=== PATIENT | female | born 1995 | race American Indian/Alaskan Native ===

== ENCOUNTER 2020-10-25 11:35 | Emergency (ER) | payer MEDICAID ==
--- NOTE | 2020-10-25 12:11 | Emergency Department Report ---
HPI - General Chief Complaint: Syncope Time Seen by Provider: 10/25/20 11:49 - HPI HPI: This is a 25-year-old -[place] female presents to the emergency department via EMS from the office of her general surgeon, Dr. Catalan, with a complaint of a syncopal episode with concern for blood loss. Patient has a history of hidradenitis suppurativa to the back of her neck that initially was incised on October 12. She went back on October 16 and everything looked fine at that time and she was told to monitor for infection and repack the wound. Over the p ast few days the patient has had some episodes of severe bleeding from the wound. Sometimes it will bleed for a few hours, despite packing, but then will stop on its own. She went to an emergency department at [place] 1 time for the bleeding but the bleeding had ceased by the time she arrived there and she was told that "this can happen sometimes." This morning the patient woke up and once again there had been a lot of bleeding from the wound that had soaked her shirt. She went in to see Dr. Catalan this morning and was told that there may have been a small artery that was bleeding. Dr. Catalan put in some stitches to close the arterial bleeding, but when the patient sat up she passed out. She was then told to come to the emergency department as there was concern for too much blood loss. ED Past Medical Hx - Social History Smoking Status: Never Smoker - Medications Home Medications: Home Medications Medication Instructions Recorded Confirmed Last Taken Type Ferrous Sulfate [Feosol] 325 mg PO BID #30 tablet 10/25/20 Unknown Rx ED Review of Systems ROS: Stated complaint: BLEEDING FROM SUGERY SITE Other details as noted in HPI Comment: All other systems reviewed and negative Constitutional: denies: chills, fever Eyes: denies: eye pain, vision change ENT: denies: ear pain, throat pain Respiratory: denies: cough, shortness of breath Cardiovascular: syncope. denies: chest pain Gastrointestinal: denies: abdominal pain, vomiting Genitourinary: denies: dysuria, discharge Musculoskeletal: denies: back pain, arthralgia Neurological: denies: headache, weakness Hematological/Lymphatic: easy bleeding Physical Exam - Physical Exam Vital Signs: Vital Signs 10/25/20 11:53 Temperature 98 F Pulse Rate 75 Respiratory 16 Rate Blood Pressure 115/44 O2 Sat by Pulse 100 Oximetry Physical Exam: GENERAL: The patient is well-developed well-nourished. HENT: Normocephalic. Atraumatic. Patient has moist mucous membranes. EYES: Extraocular motions are intact. No nystagmus. NECK: Supple. Trachea is midline. CHEST/LUNGS: Clear to auscultation. There is no respiratory distress noted. HEART/CARDIOVASCULAR: Regular. There is no tachycardia. There is no murmur. ABDOMEN: Abdomen is soft, nontender. Patient has normal bowel sounds. Morbidly obese habitus. SKIN: Skin is warm and dry. There is a moderate incisional wound seen to the inferior posterior neck, along the length of her neck, but no current bleeding. No surrounding erythema or chronic purulent discharge. NEURO: The patient is awake, alert, and oriented. The patient is cooperative. The patient has no focal neurologic deficits. Normal speech. MUSCULOSKELETAL: There is no tenderness or deformity. There is no limitation range of motion. ED Course Vital Signs 10/25/20 11:53 Temperature 98 F Pulse Rate 75 Respiratory 16 Rate Blood Pressure 115/44 O2 Sat by Pulse 100 Oximetry - Consultations Consultation #1: 10/25/20 14:40 I spoke to the patient's surgeon, Dr. Catalan. He wanted to make sure that the patient received some IV fluid, which she did in route receiving 2 L of normal saline. Otherwise, if she does not require transfusion and is feeling improved then there is nothing else that he needs during this patient's ED course. They will call the patient for a follow-up appointment. ED Medical Decision Making - Lab Data Result diagrams: 10/25/20 12:36 10/25/20 12:36 Lab Results 10/25/20 10/25/20 10/25/20 Range/Units 12:36 12:36 12:36 WBC 10.9 (4.5-11.0) K/mm3 RBC 3.41 L (3.65-5.03) M/mm3 Hgb 9.4 L (10.1-14.3) gm/dl Hct 26.9 L (30.3-42.9) % MCV 79 (79-97) fl MCH 28 (28-32) pg MCHC 35 H (30-34) % RDW 15.2 (13.2-15.2) % Plt Count 234 (140-440) K/mm3 Lymph % (Auto) 16.9 (13.4-35.0) % [place] % (Auto) 5.2 (0.0-7.3) % Eos % (Auto) 2.5 (0.0-4.3) % Baso % (Auto) 0.7 (0.0-1.8) % Lymph # (Auto) 1.9 (1.2-5.4) K/mm3 [place] # (Auto) 0.6 (0.0-0.8) K/mm3 Eos # (Auto) 0.3 (0.0-0.4) K/mm3 Baso # (Auto) 0.1 (0.0-0.1) K/mm3 Seg Neutrophils % 74.7 H (40.0-70.0) % Seg Neutrophils # 8.2 H (1.8-7.7) K/mm3 Sodium 138 (137-145) mmol/L Potassium 4.3 (3.6-5.0) mmol/L Chloride 103.9 (98-107) mmol/L Carbon Dioxide 25 (22-30) mmol/L Anion Gap 13 mmol/L BUN 8 (7-17) mg/dL Creatinine 0.7 (0.6-1.2) mg/dL Estimated GFR > 60 ml/min BUN/Creatinine Ratio 11 % Glucose 105 H (65-100) mg/dL Calcium 8.0 L (8.4-10.2) mg/dL TSH (0.270-4.200) mlU/mL HCG, Qual Negative (Negative) 10/25/20 Range/Units 12:36 WBC (4.5-11.0) K/mm3 RBC (3.65-5.03) M/mm3 Hgb (10.1-14.3) gm/dl Hct (30.3-42.9) % MCV (79-97) fl MCH (28-32) pg MCHC (30-34) % RDW (13.2-15.2) % Plt Count (140-440) K/mm3 Lymph % (Auto) (13.4-35.0) % [place] % (Auto) (0.0-7.3) % Eos % (Auto) (0.0-4.3) % Baso % (Auto) (0.0-1.8) % Lymph # (Auto) (1.2-5.4) K/mm3 [place] # (Auto) (0.0-0.8) K/mm3 Eos # (Auto) (0.0-0.4) K/mm3 Baso # (Auto) (0.0-0.1) K/mm3 Seg Neutrophils % (40.0-70.0) % Seg Neutrophils # (1.8-7.7) K/mm3 Sodium (137-145) mmol/L Potassium (3.6-5.0) mmol/L Chloride (98-107) mmol/L Carbon Dioxide (22-30) mmol/L Anion Gap mmol/L BUN (7-17) mg/dL Creatinine (0.6-1.2) mg/dL Estimated GFR ml/min BUN/Creatinine Ratio % Glucose (65-100) mg/dL Calcium (8.4-10.2) mg/dL TSH 0.746 (0.270-4.200) mlU/mL HCG, Qual (Negative) - EKG Data -: EKG Interpreted by Al EKG shows normal: sinus rhythm, axis, intervals, QRS complexes, ST-T waves (Flattened T waves versus inverted T waves throughout most leads) Rate: normal - EKG Data When compared to previous EKG there are: previous EKG unavailable Interpretation: other (Sinus rhythm, normal axis, normal intervals. Flattening of T waves versus inverted T waves. No ST elevation IA.) - Medical Decision Making This patient presents to the emergency department after she had multiple different episodes of bleeding from the abscess that was initially incised from the back of her neck. While she was in the office of her surgeon, Dr. Catalan, he witnessed that the patient had a lot of blood loss and she had a syncopal episode. Dr. Catalan placed some sutures around what sounds like a small arterial bleed. The patient has been reevaluated multiple times for more than 3 hours in the emergency department and there has been no return of bleeding from the wound. Patient's hemoglobin came back at about 9.5. No thrombocytopenia. Normal electrolytes. Normal thyroid function. Vital signs have been reassuring throughout her ED course including being afebrile. The patient was able to sit up, stand up, and ambulate without any return of dizziness/lightheadedness, and without further syncopal episodes. The patient will be started on iron supplementation pills. She will be contacted by the office of Dr. Catalan for her follow-up appointment. She will return to the emergency department with any worsening of her symptoms or with any acute distress. Critical Care Time: No Critical care attestation.: If time is entered above; I have spent that time in minutes in the direct care of this critically ill patient, excluding procedure time. ED Disposition Clinical Impression: Syncope Qualifiers: Syncope type: unspecified Qualified Code(s): R55 - Syncope and collapse Anemia Qualifiers: Anemia type: unspecified type Qualified Code(s): D64.9 - Anemia, unspecified Open neck wound Qualifiers: Encounter type: sequela Qualified Code(s): S11.90XS - Unspecified open wound of unspecified part of neck, sequela Disposition: TO HOME OR SELFCARE Is pt being admited?: No Condition: Stable Instructions: Syncope, [id number], Syncope (ED) Additional Instructions: Please follow-up with your primary care physician. Dr. Catalan's office will be contacting you to set up a follow-up appointment. I am starting you on some iron pills to help increase your hemoglobin. Sometimes the iron supplementation can be constipating. You can add an over- the-counter stool softener, such as Colace. Make sure to stay hydrated. Return to the emergency department with any worsening of your symptoms, new or concerning symptoms not addressed during this current emergency department visit, or with any acute distress. Prescriptions: Ferrous Sulfate [Feosol] 325 mg PO BID #30 tablet Referrals: KEN FRITZ FNP [Primary Care Provider] - 3-5 Days COLLEEN CATALAN MD [Staff Physician] - 3-5 Days (Dr. Catalan's office should be contacting you shortly for an outpatient follow-up appointment.) Time of Disposition: 14:47
[2020-10-25 12:56] LABS: Basophils # (Auto) 0.1 K/mm3 (0.0-0.1); Basophils % (Auto) 0.7 % (0.0-1.8); Eosinophils # (Auto) 0.3 K/mm3 (0.0-0.4); Eosinophils % (Auto) 2.5 % (0.0-4.3); Hematocrit 26.9 % (30.3-42.9); Hemoglobin 9.4 gm/dl (10.1-14.3); Lymphocytes # (Auto) 1.9 K/mm3 (1.2-5.4); Lymphocytes % (Auto) 16.9 % (13.4-35.0); Mean Corpuscular HGB Conc 35 % (30-34); Mean Corpuscular Volume 79 fl (79-97); Monocytes # (Auto) 0.6 K/mm3 (0.0-0.8); Monocytes % (Auto) 5.2 % (0.0-7.3); Red Blood Count 3.41 M/mm3 (3.65-5.03); Red Cell Distribution Width 15.2 % (13.2-15.2)
[2020-10-25 13:05] LABS: Platelet Count 234 K/mm3 (140-440)
[2020-10-25 13:24] LABS: Blood Urea Nitrogen 8 mg/dL (7-17); Hemolysis Index 27
[2020-10-25 13:25] LABS: BUN/Creatinine Ratio 11
[2020-10-25] MEDS ORDERED: HYDROcodone/ACETAMINOPHEN 5-325 MG TAB PO ONE (14:46)
[2020-10-25 15:07] VITALS: BP 117/42
--- NOTE | 2020-10-26 18:07 | Electrocardiograph Report ---
[facility] Test Date: 2020-10-25 Test Time: 12:10:39 Pat Name: WILLIAM CANNON Department: Room: Gender: F Ecologist: CLMoe : 1995 Requested By: SHAVONNE MCCULLOUGH Order Number: [id number] Reading MD: Eleno Lanza Measurements Intervals Reagan Rate: 70 P: 8 HI: 160 QRS: 47 QRSD: 78 T: -14 QT: 396 QTc: 426 Interpretive Statements Sinus rhythm Low voltage, precordial leads Borderline T abnormalities, diffuse leads No previous ECG available for comparison Electronically Signed On 10-26-2020 18:06:37 EDT by Eleno Lanza
== END 2020-10-25 15:07 | disposition home or self-care (01) ==
LOC: ED 11:35
DX: L76.22 Postprocedural hemorrhage of skin and subcutaneous tissue following other procedure (principal); S11.90XS Unspecified open wound of unspecified part of neck, sequela; D64.9 Anemia, unspecified; R55 Syncope and collapse; Z88.0 Allergy status to penicillin; Z88.6 Allergy status to analgesic agent; Z88.8 Allergy status to other drugs, medicaments and biological substances; Z91.040 Latex allergy status; Z79.899 Other long term (current) drug therapy; X58.XXXS Exposure to other specified factors, sequela
CPT/HCPCS: 36415; 80048; 84443; 84703; 85025; 93005